=== PATIENT | female | born 1950 | race Caucasian/White ===

== ENCOUNTER 2016-06-23 10:55 | Day surgery (SDC) | payer OTHER, MEDICARE ==
[~2016-06-23] VITALS: Ht 165.1 cm; Wt 113.4 kg
[~2016-06-23 10:55] MED LIST: ADULT LOW DOSE81 M1 PO; AUGMENTIN875 MG PO; BYSTOLIC10 MG PO; Bystolic PO; CARDURA2 M1 PO; CARDURA4 MG PO; FLEXERIL5 MG PO; GLUCOPHAGE1000 MG PO; GLUCOPHAGE500 MG PO; GLUCOTROL10 MG PO; LASIX40 MG PO; MYFORTIC180 MG PO; MYFORTIC360 MG PO; PROGRAF0.5 MG PO; PROGRAF1 MG PO; PROTONIX20 MG PO; PROTONIX40 MG PO; Prograf PO; TRADJENTA5 MG PO; TYLENOL WITH C1 EACH PO; ZOCOR20 MG PO
[2016-06-23 11:26] VITALS: BP 142/63
[2016-06-23 12:33] LABS: POINT-OF-CARE METER ID UU14174212
[2016-06-23 14:23] LABS: POINT-OF-CARE METER ID UU13113675
[2016-06-23 15:54] VITALS: BP 163/71
[2016-06-23 16:32] VITALS: BP 168/74
== END 2016-06-23 16:45 | disposition home or self-care (01) ==
LOC: SDC 10:55
PROVIDERS: Orthopaedic Surgery Hand Surgery
DX: G56.01 Carpal tunnel syndrome, right upper limb (principal); G56.21 Lesion of ulnar nerve, right upper limb; G47.30 Sleep apnea, unspecified; E11.9 Type 2 diabetes mellitus without complications; I10 Essential (primary) hypertension; M19.90 Unspecified osteoarthritis, unspecified site; Z79.84 Long term (current) use of oral hypoglycemic drugs; Z79.82 Long term (current) use of aspirin; Z92.25 Personal history of immunosuppression therapy; Z94.0 Kidney transplant status; Z68.42 Body mass index [BMI] 45.0-49.9, adult; Z96.651 Presence of right artificial knee joint; Z82.61 Family history of arthritis; Z82.49 Family history of ischemic heart disease and other diseases of the circulatory system; Z83.3 Family history of diabetes mellitus
CPT/HCPCS: 82948; J0330; J0690; J1100; J2405; J2765; J3010; S0020

== ENCOUNTER 2017-02-19 15:29 | Inpatient (IN) | payer OTHER, MEDICARE ==
[~2017-02-19] VITALS: Ht 160 cm; Wt 123.6 kg
[~2017-02-19 15:29] MED LIST changes: -ZOCOR20 MG PO; +ZOCOR40 MG PO
[2017-02-19 16:26] LABS: HEMATOCRIT 35.9 % (36.0-46.0); HEMOGLOBIN 10.8 G/DL (11.9-15.5); MCH 27.2 PG (29.0-34.0); MCHC 30.1 G/DL (30.0-36.0); MCV 90.4 FL (83-99); PLATELET COUNT 95 K/uL (156-360); RBC DIS.WIDTH-CV 14.6 % (11.8-14.6); RBC DIS.WIDTH-SD 47.9 % (39-53); RED BLOOD COUNT 3.97 M/uL (3.80-5.20); WHITE BLOOD COUNT 6.9 K/uL (4.1-10.2)
[2017-02-19 17:03] LABS: CHLORIDE 108 MEQ/L (99-109); POTASSIUM 4.4 MEQ/L (3.7-5.4); SODIUM 139 MEQ/L (136-147)
[2017-02-19 17:07] LABS: TROP-I INTERPRETATION NEGATIVE; TROPONIN-I < 0.01 ng/mL (0.0-0.30)
[2017-02-19 17:08] LABS: CREATININE 1.3 MG/DL (0.6-1.3); GFR ESTIMATE (CALCULATED) 43 mL/min/; GLUCOSE 132 mg/dL (70-99); UREA NITROGEN (BUN) 23 mg/dL (9-23)
[2017-02-19] MEDS ORDERED: RANITIDINE HCL300 MG PO (17:55)
[2017-02-19] MEDS ORDERED: VITAMIN D31000 UNIT PO (17:56)
[2017-02-19 19:57] VITALS: BP 138/78
[2017-02-19 22:27] LABS: INTER. NORMALIZED RATIO 1.1
[2017-02-19 23:51] VITALS: BP 129/60
[2017-02-20 03:45] VITALS: BP 120/72
[2017-02-20 06:10] LABS: BASOPHIL (%) 0.5 % (0-1); EOSINOPHIL (%) 1.7 % (0-5); EOSINOPHIL COUNT 0.1 K/uL (0-0.3); HEMATOCRIT 35.2 % (36.0-46.0); HEMOGLOBIN 10.4 G/DL (11.9-15.5); IMMATURE GRANULOCYTE (%) 0.5 % (0.0-0.7); LYMPHOCYTE (%) 33.9 % (15-42); LYMPHOCYTE COUNT 2.5 K/uL (1.0-2.8); MCH 26.7 PG (29.0-34.0); MCHC 29.5 G/DL (30.0-36.0); MCV 90.5 FL (83-99); MONOCYTE (%) 9.9 % (3-12); MONOCYTE COUNT 0.7 K/uL (0-0.8); NEUTROPHIL (%) 53.5 % (45-76); PLATELET COUNT 99 K/uL (156-360); RBC DIS.WIDTH-CV 14.7 % (11.8-14.6); RBC DIS.WIDTH-SD 48.2 % (39-53); RED BLOOD COUNT 3.89 M/uL (3.80-5.20); WHITE BLOOD COUNT 7.5 K/uL (4.1-10.2)
[2017-02-20 06:41] LABS: CHLORIDE 108 MEQ/L (99-109); CREATININE 1.5 MG/DL (0.6-1.3); GFR ESTIMATE (CALCULATED) 37 mL/min/; GLUCOSE 159 mg/dL (70-99); POTASSIUM 4.4 MEQ/L (3.7-5.4); SODIUM 142 MEQ/L (136-147); UREA NITROGEN (BUN) 21 mg/dL (9-23)
[2017-02-20 07:52] VITALS: BP 133/80
[2017-02-20 11:40] VITALS: BP 126/76
[2017-02-20 16:00] VITALS: BP 130/78
[2017-02-20 20:25] VITALS: BP 154/75
[2017-02-20 23:53] VITALS: BP 140/68
[2017-02-21 04:04] VITALS: BP 121/72
[2017-02-21 05:49] LABS: HEMATOCRIT 34.5 % (36.0-46.0); HEMOGLOBIN 10.5 G/DL (11.9-15.5); MCH 27.8 PG (29.0-34.0); MCHC 30.4 G/DL (30.0-36.0); MCV 91.3 FL (83-99); PLATELET COUNT 90 K/uL (156-360); RBC DIS.WIDTH-CV 14.8 % (11.8-14.6); RBC DIS.WIDTH-SD 49.3 % (39-53); RED BLOOD COUNT 3.78 M/uL (3.80-5.20)
[2017-02-21 06:29] LABS: CHLORIDE 107 MEQ/L (99-109); CREATININE 1.6 MG/DL (0.6-1.3); GFR ESTIMATE (CALCULATED) 34 mL/min/; GLUCOSE 144 mg/dL (70-99); POTASSIUM 4.9 MEQ/L (3.7-5.4); SODIUM 141 MEQ/L (136-147); UREA NITROGEN (BUN) 25 mg/dL (9-23)
[2017-02-21 07:22] VITALS: BP 149/83
[2017-02-21 12:07] VITALS: BP 130/73
[2017-02-21 15:03] LABS: APPEARANCE SL.HAZY ((CLEAR)); BILIRUBIN NEGATIVE; BLOOD SMALL; COLOR YELLOW ((YELLOW)); GLUCOSE (STRIP) NEGATIVE; KETONES NEGATIVE; LEUKOCYTES SMALL; NITRITE NEGATIVE; PROTEIN (STRIP) NEGATIVE; SPECIFIC GRAVITY 1.006 (1.000-1.030); UROBILINOGEN 0.2 MG/DL (0.2-1.0)
[2017-02-21 15:35] LABS: UR CREATININE CONCENTRATION 67.5 MG/DL
[2017-02-21 15:56] VITALS: BP 116/69
[2017-02-21 16:13] LABS: BACTERIA RARE /HPF; EPITHELIAL CELLS 1+ /HPF; MUCUS NONE SEEN /LPF; RED BLOOD CELLS 0-5 /HPF (0-5); UCUL ADDED? YES
[2017-02-21 19:55] VITALS: BP 148/70
[2017-02-22] VITALS: BP 143/81
[2017-02-22 04:00] VITALS: BP 131/76
[2017-02-22 07:52] VITALS: BP 158/79
[2017-02-22 08:07] LABS: CHLORIDE 107 MEQ/L (99-109); CREATININE 1.3 MG/DL (0.6-1.3); GFR ESTIMATE (CALCULATED) 43 mL/min/; GLUCOSE 166 mg/dL (70-99); PHOSPHORUS 4.2 mg/dL (2.5-4.9); POTASSIUM 4.7 MEQ/L (3.7-5.4); SODIUM 140 MEQ/L (136-147); UREA NITROGEN (BUN) 22 mg/dL (9-23)
[2017-02-22] MEDS ORDERED: ELIQUIS5 MG PO (09:02)
[2017-02-22] MEDS ORDERED: METOPROLOL TART75 MG PO (09:06)
[2017-02-22] MEDS ORDERED: AUGMENTIN875 MG PO (09:08)
[2017-02-22] MEDS ORDERED: COUMADIN5 MG PO (11:58)
[2017-02-22] MEDS ORDERED: LOVENOX120 MG/0.8 SC (11:59)
== END 2017-02-22 11:45 | disposition home or self-care (01) | DRG 193 ==
LOC: EME 15:29 → ENRESERV 17:21 → 5SOUTH 17:38 → EDOF 17:38 → ENRESERV 17:53 → 5SOUTH 19:59
PROVIDERS: Emergency Medicine; Hospitalist; Internal Medicine Nephrology; Nurse Practitioner Adult Health
DX: J18.9 Pneumonia, unspecified organism (principal); N17.9 Acute kidney failure, unspecified; I48.91 Unspecified atrial fibrillation; E78.5 Hyperlipidemia, unspecified; I12.9 Hypertensive chronic kidney disease with stage 1 through stage 4 chronic kidney disease, or unspecified chronic kidney disease; E11.22 Type 2 diabetes mellitus with diabetic chronic kidney disease; I12.0 Hypertensive chronic kidney disease with stage 5 chronic kidney disease or end stage renal disease; N18.6 End stage renal disease; D64.9 Anemia, unspecified; M54.5 Low back pain; G89.29 Other chronic pain; E66.01 Morbid (severe) obesity due to excess calories; R60.0 Localized edema; G47.30 Sleep apnea, unspecified; Z79.82 Long term (current) use of aspirin; Z94.0 Kidney transplant status; Z90.49 Acquired absence of other specified parts of digestive tract; Z68.42 Body mass index [BMI] 45.0-49.9, adult; Z79.84 Long term (current) use of oral hypoglycemic drugs; Z79.899 Other long term (current) drug therapy
CPT/HCPCS: 36415; 71010; 71020; 76776; 80048; 80069; 80197 90; 81003; 82570; 82948; 83036; 83605; 83735; 83880; 84100; 84156; 84484; 85025; 85027; 85610; 85730; 87040; 87070; 87086; 87205; 87449; 93005; 99281; 99285; J0456; J0696; J1815; J1940; J7030; J7507; J7518

== ENCOUNTER 2017-03-22 08:55 | Day surgery (SDC) | payer OTHER, MEDICARE ==
[~2017-03-22] VITALS: Ht 165.1 cm; Wt 116.0 kg
[~2017-03-22 08:55] MED LIST changes: +COUMADIN5 MG PO; +ELIQUIS5 MG PO; +FUROSEMIDE20 MG PO; +LOVENOX120 MG/0.8 SC; +METOPROLOL TART75 MG PO; +RANITIDINE HCL300 MG PO; +VITAMIN D31000 UNIT PO
== END 2017-03-22 11:27 | disposition home or self-care (01) ==
LOC: CATH 08:55
PROVIDERS: Internal Medicine Cardiovascular Disease
PROC: 5A2204Z Restoration of Cardiac Rhythm, Single (ICD-10-PCS; principal; 2017-03-22)
DX: I48.1 Persistent atrial fibrillation (principal); I10 Essential (primary) hypertension; E78.5 Hyperlipidemia, unspecified; G47.33 Obstructive sleep apnea (adult) (pediatric); F41.8 Other specified anxiety disorders; E66.09 Other obesity due to excess calories; Z68.41 Body mass index [BMI] 40.0-44.9, adult; Z94.0 Kidney transplant status
CPT/HCPCS: 82948

== ENCOUNTER 2017-05-02 08:45 | Day surgery (SDC) | payer OTHER, MEDICARE ==
[~2017-05-02] VITALS: Ht 165.1 cm; Wt 113.0 kg
[~2017-05-02 08:45] MED LIST changes: +AMIODARONE HCL200 MG PO; +METOPROLOL TAR100 MG PO
== END 2017-05-02 11:30 | disposition home or self-care (01) ==
LOC: CATH 08:45
PROVIDERS: Internal Medicine Cardiovascular Disease
PROC: 5A2204Z Restoration of Cardiac Rhythm, Single (ICD-10-PCS; principal; 2017-05-02)
DX: I48.1 Persistent atrial fibrillation (principal); I10 Essential (primary) hypertension; E78.5 Hyperlipidemia, unspecified; G47.33 Obstructive sleep apnea (adult) (pediatric); E11.9 Type 2 diabetes mellitus without complications; E66.09 Other obesity due to excess calories; J44.9 Chronic obstructive pulmonary disease, unspecified; D64.9 Anemia, unspecified; Z79.84 Long term (current) use of oral hypoglycemic drugs; Z94.0 Kidney transplant status
CPT/HCPCS: 82948; 93005

== ENCOUNTER 2017-05-07 15:08 | Emergency (ER) | payer OTHER, MEDICARE ==
[~2017-05-07] VITALS: Ht 165.1 cm; Wt 121.8 kg
[2017-05-07 16:23] LABS: BASOPHIL (%) 0.5 % (0-1); EOSINOPHIL (%) 2.3 % (0-5); EOSINOPHIL COUNT 0.1 K/uL (0-0.3); HEMATOCRIT 34.2 % (36.0-46.0); HEMOGLOBIN 10.3 G/DL (11.9-15.5); IMMATURE GRANULOCYTE (%) 0.4 % (0.0-0.7); LYMPHOCYTE (%) 26.3 % (15-42); LYMPHOCYTE COUNT 1.5 K/uL (1.0-2.8); MCH 26.3 PG (29.0-34.0); MCHC 30.1 G/DL (30.0-36.0); MCV 87.2 FL (83-99); MONOCYTE (%) 7.2 % (3-12); MONOCYTE COUNT 0.4 K/uL (0-0.8); NEUTROPHIL (%) 63.3 % (45-76); NEUTROPHIL COUNT 3.5 K/uL (1.8-6.4); PLATELET COUNT 126 K/uL (156-360); RBC DIS.WIDTH-CV 14.8 % (11.8-14.6); RBC DIS.WIDTH-SD 47.7 % (39-53); RED BLOOD COUNT 3.92 M/uL (3.80-5.20); WHITE BLOOD COUNT 5.6 K/uL (4.1-10.2)
[2017-05-07 16:32] LABS: CHLORIDE 111 mEq/L (99-109); POTASSIUM 4.3 mEq/L (3.7-5.4); SODIUM 140 mEq/L (136-147)
[2017-05-07 16:34] LABS: GLUCOSE 121 mg/dL (70-99)
[2017-05-07 16:38] LABS: CREATININE 1.3 mg/dL (0.6-1.3); GFR ESTIMATE (CALCULATED) 43 mL/min/
[2017-05-07 16:39] LABS: UREA NITROGEN (BUN) 21 mg/dL (9-23)
[2017-05-07 16:44] LABS: TROP-I INTERPRETATION NEGATIVE; TROPONIN-I < 0.01 ng/mL (0.0-0.30)
[2017-05-07 19:10] VITALS: BP 153/58
== END 2017-05-07 19:10 | disposition home or self-care (01) ==
LOC: EME 15:08
PROVIDERS: Family Medicine
DX: I50.9 Heart failure, unspecified (principal); J81.1 Chronic pulmonary edema; E11.22 Type 2 diabetes mellitus with diabetic chronic kidney disease; E78.5 Hyperlipidemia, unspecified; I48.91 Unspecified atrial fibrillation; J44.9 Chronic obstructive pulmonary disease, unspecified; N18.9 Chronic kidney disease, unspecified; Z94.0 Kidney transplant status; Z88.8 Allergy status to other drugs, medicaments and biological substances; Z91.041 Radiographic dye allergy status; Z79.84 Long term (current) use of oral hypoglycemic drugs
CPT/HCPCS: 71046; 71250; 80048; 83880; 84484; 85025; 93005; 94640; 99281; 99285

== ENCOUNTER 2017-09-22 13:36 | Emergency (ER) | payer OTHER, MEDICARE ==
[~2017-09-22] VITALS: Ht 165.1 cm; Wt 114.0 kg
[2017-09-22] MEDS ORDERED: TYLENOL WITH C1 EACH PO (15:40)
[2017-09-22 16:00] VITALS: BP 148/55
== END 2017-09-22 16:02 | disposition home or self-care (01) ==
LOC: EME 13:36
DX: S16.1XXA Strain of muscle, fascia and tendon at neck level, initial encounter (principal); R51 Headache; S20.219A Contusion of unspecified front wall of thorax, initial encounter; V49.40XA Driver injured in collision with unspecified motor vehicles in traffic accident, initial encounter; Y92.410 Unspecified street and highway as the place of occurrence of the external cause; E11.22 Type 2 diabetes mellitus with diabetic chronic kidney disease; I12.9 Hypertensive chronic kidney disease with stage 1 through stage 4 chronic kidney disease, or unspecified chronic kidney disease; N18.9 Chronic kidney disease, unspecified; E78.5 Hyperlipidemia, unspecified; Z94.0 Kidney transplant status; Z90.49 Acquired absence of other specified parts of digestive tract; Z96.651 Presence of right artificial knee joint; Z79.84 Long term (current) use of oral hypoglycemic drugs; Z88.8 Allergy status to other drugs, medicaments and biological substances; Z91.041 Radiographic dye allergy status
CPT/HCPCS: 70450; 71045; 72125; 99281; 99284